=== PATIENT | female | born 1960 | race Two or more races ===

== ENCOUNTER 2018-12-28 08:34 | Inpatient (IN) | payer OTHER ==
[~2018-12-28] VITALS: Ht 154.9 cm; Wt 104.0 kg
[2018-12-28] MEDS ORDERED: SODIUM CHLORIDE 0.9% 1,000 ML IV ONE (09:22)
[2018-12-28] MEDS ORDERED: METHYLPREDNISOLONE SOD SUCC 125 MG/2 ML VIAL IV STA (09:22)
[2018-12-28] MEDS ORDERED: LEVOFLOXACIN 750MG PREMIX 150 ML IV ONE (09:30)
[2018-12-28] MEDS ORDERED: IPRATROPIUM/ALBUTEROL 0.5-3(2.5)MG/3ML NEB HHN ONE (09:30)
[2018-12-28 09:47] LABS: HEMATOCRIT. 35.1 % (36.0-48.0); HEMOGLOBIN. 11.5 g/dL (12.0-16.0); MEAN CORPUSCULAR VOLUME 79.1 fL (81.0-99.0); RED BLOOD CELL COUNT 4.44 mill/uL (4.2-5.4); RED CELL DISTRIBUTION WIDTH 14.4 % (11.6-14.6)
[2018-12-28 09:52] LABS: CHLORIDE 103 mEq/L (98-107)
[2018-12-28 09:58] LABS: ETHANOL BLOOD < 10 mg/dL
[2018-12-28 11:00] LABS: INR 1.2; PARTIAL THROMBOPLASTIN TIME 30.1 sec (23.4-31.0); PROTHROMBIN TIME 11.8 sec (9.1-11.1)
[2018-12-28] MEDS ORDERED: NA PHOS,M-B/NA PHOS,DI-BA ENEMA 118ML PR PRN (13:00)
[2018-12-28] MEDS ORDERED: LORAZEPAM 0.5MG TABLET PO PRN (13:00)
[2018-12-28] MEDS ORDERED: CLONIDINE 0.1MG TABLET PO PRN (13:00)
[2018-12-28] MEDS ORDERED: SODIUM CHLORIDE 0.9% 1000ML BAG (SEPSIS BOLUS) IV ONE (13:00)
[2018-12-28] MEDS ORDERED: ACETAMINOPHEN 325MG TABLET PO PRN (13:00)
[2018-12-28] MEDS ORDERED: ONDANSETRON HCL 4MG/2ML INJ IV PRN (13:00)
[2018-12-28] MEDS ORDERED: DOCUSATE SODIUM 100MG CAPSULE PO PRN (13:00)
[2018-12-28] MEDS ORDERED: ZOLPIDEM TARTRATE 5MG TABLET PO PRN (13:00)
[2018-12-28] MEDS ORDERED: NITROGLYCERIN 0.4MG TABLET SL SL PRN (13:00)
[2018-12-28] MEDS ORDERED: IPRATROPIUM/ALBUTEROL 0.5-3(2.5)MG/3ML NEB INH PRN (13:00)
[2018-12-28] MEDS ORDERED: MAGNESIUM/ALUMINUM HYDROXIDE/SIMETHICONE 30ML UDC PO PRN (13:00)
[2018-12-28 14:56] VITALS: BP 101/47
[2018-12-28 15:00] VITALS: BP 101/47
[2018-12-28] MEDS ORDERED: LEVO200T8 PO (15:50)
[2018-12-28] MEDS ORDERED: AMIT-188 PO (15:50)
[2018-12-28] MEDS ORDERED: ZOLP10TA2 PO (15:50)
[2018-12-28] MEDS ORDERED: FLUO40CA8 PO (15:50)
[2018-12-28 16:00] VITALS: BP 104/42
[2018-12-28] MEDS: IPRATROPIUM/ALBUTEROL 0.5-3(2.5)MG/3ML NEB HHN SCH ×2 (16:15→22:42)
[2018-12-28] MEDS: KETOROLAC 15MG/ML VIAL IV PRN (16:24)
[2018-12-28] MEDS ORDERED: CEFTRIAXONE 1,000 MG in DEXTROSE 5% WATER 50 ML IV SCH (18:00)
[2018-12-28 19:45] LABS: CREATINE KINASE 42 IU/L (26-192)
[2018-12-28 19:46] LABS: CREATINE KINASE MB FRACTION < 1.0 ng/mL (0.5-3.6)
[2018-12-28] MEDS ORDERED: AZITHROMYCIN 500 MG in DEXT 5% WATER 250 ML IV SCH (20:00)
[2018-12-28 21:06] LABS: *AMPHETAMINES SCREEN URINE NEGATIVE (NEGATIVE); *BARBITURATES SCREEN URINE NEGATIVE (NEGATIVE); *BENZODIAZEPINES SCREEN URINE NEGATIVE (NEGATIVE); *COCAINE SCREEN URINE NEGATIVE (NEGATIVE)
[2018-12-28 21:07] LABS: CANNABINOID URINE SCREEN NEGATIVE (NEGATIVE); METHADONE URINE SCREEN NEGATIVE (NEGATIVE); OPIATES URINE SCREEN PRESUMTIVE POSITIVE (NEGATIVE); PHENCYCLIDINE URINE SCREEN NEGATIVE (NEGATIVE)
[2018-12-28] MEDS: ASCORBIC ACID 500 MG TABLET PO SCH (21:34)
[2018-12-28] MEDS: ENOXAPARIN 40MG/0.4ML SYR SUBCUT SCH (21:35)
[2018-12-28] MEDS: METHYLPREDNISOLONE SOD SUCC 125 MG/2 ML VIAL IV SCH (21:35)
[2018-12-28] MEDS: FAMOTIDINE 20MG TABLET PO SCH (21:35)
[2018-12-29] VITALS: BP 107/36
[2018-12-29] MEDS: IPRATROPIUM/ALBUTEROL 0.5-3(2.5)MG/3ML NEB HHN SCH ×3 (02:45→12:39)
[2018-12-29 04:00] VITALS: BP 110/40
[2018-12-29] MEDS: METHYLPREDNISOLONE SOD SUCC 125 MG/2 ML VIAL IV SCH (06:55)
[2018-12-29 07:21] LABS: CREATINE KINASE 38 IU/L (26-192)
[2018-12-29 07:22] LABS: CREATINE KINASE MB FRACTION < 1.0 ng/mL (0.5-3.6)
[2018-12-29 08:00] VITALS: BP 121/53
[2018-12-29] MEDS ORDERED: CEFTRIAXONE 1 G PREMIX 50 ML IV SCH (09:00)
[2018-12-29] MEDS: ASCORBIC ACID 500 MG TABLET PO SCH (09:52)
[2018-12-29] MEDS: ENOXAPARIN 40MG/0.4ML SYR SUBCUT SCH (09:52)
[2018-12-29] MEDS: FAMOTIDINE 20MG TABLET PO SCH (09:52)
[2018-12-29] MEDS: KETOROLAC 15MG/ML VIAL IV PRN (09:53)
[2018-12-29 12:00] VITALS: BP 126/55
[2018-12-29 13:14] VITALS: BP 126/55
[2018-12-29] MEDS ORDERED: AZITHROMYCIN 500 MG in DEXT 5% WATER 250 ML IV SCH (20:00)
== END 2018-12-29 13:45 | disposition home or self-care (01) | DRG 720 ==
LOC: ER 08:34 → 5WST 12:04 → ENRESERV 13:06
PROVIDERS: ADMIT Internal Medicine; ATTEND Internal Medicine
DX: A41.9 Sepsis, unspecified organism (principal); J18.9 Pneumonia, unspecified organism; J45.901 Unspecified asthma with (acute) exacerbation; E44.1 Mild protein-calorie malnutrition; Z68.41 Body mass index [BMI] 40.0-44.9, adult; F32.9 Major depressive disorder, single episode, unspecified; D64.9 Anemia, unspecified; Z90.49 Acquired absence of other specified parts of digestive tract; Z87.01 Personal history of pneumonia (recurrent)
CPT/HCPCS: 36415; 71045; 80305; 82550; 82553; 83036; 83605; 83880; 84484; 93005; 93970; 94640; 96365; 96366; 96367; 96375; 99285; J0456; J0696; J1650; J1885; J1956; J2930; J7030; J7040; J7060; J7620